=== PATIENT | female | born 1995 | race African-American/Black ===

== ENCOUNTER 2020-02-10 14:42 | Emergency (ER) | payer OTHER, SELFPAY ==
--- NOTE | ~2020-02-10 | XR_ITS ---
EXAMINATION: XR hand LT min 3V DATE: 02/10/2020 15:07 INDICATION: Left hand injury. TECHNIQUE: 3 views of left hand were obtained. COMPARISON: None. FINDINGS: Bone alignment is normal. No fracture. Joint spaces are well maintained. IMPRESSION: 1. Normal left hand. Reviewed, dictated and finalized at location A. OPSYCHOLOGY DIRECTOR IMPRESSION: 1. Normal left hand.
[2020-02-10 14:50] VITALS: BP 141/85; PULSE 95; RESP 16; TEMP 36.9; O2SAT 100
--- NOTE | 2020-02-10 15:36 | ED.GENADULT ---
HPI - General Adult General Chief complaint: Extremity Injury, Upper Stated complaint: lt hand injury Time Seen by Provider: 02/10/20 15:36 Source: patient Mode of arrival: ambulatory Limitations: no limitations History of Present Illness HPI narrative: 24-year-old female patient presents to the [facility] with complaints of left hand pain. Patient states that on Halloween night she was wearing some white contacts and states she was having difficulty seeing and tripped up some stairs using her left hand to brace her fall. Patient states that she hit her left hand on the stairs also scratched up. Patient states she is been taking Tylenol, ibuprofen and icing the hand. Related Data Home Medications Medication Instructions Recorded Confirmed No Home Medications 02/10/20 02/10/20 Allergies Allergy/AdvReac Type Severity Reaction Status Date / Time No Known Allergies Allergy Verified 02/10/20 14:56 Review of Systems Review of Systems: Narrative: CONSTITUTIONAL: Denies fever, chills, or sweats. EYES: Denies visual changes, redness, or discharge. ENT: Denies rhinorrhea, congestion, sore throat, or otalgia. CARDIOVASCULAR: Denies chest pain, palpitations, or edema. RESPIRATORY: Denies cough or dyspnea. GASTROINTESTINAL: Denies abdominal pain, nausea, vomiting, or diarrhea. GENITOURINARY: Denies dysuria or hematuria. SKIN: Denies rash or itching. Positive abrasions left hand MUSCULOSKELETAL: Denies back pain, joint pain, or myalgia. Positive left hand pain NEUROLOGIC: Denies headache, numbness, or weakness. PSYCHIATRIC: Denies anxiety or depression. PMFSH Comments At the time of my signature I agree with nursing past medical history, surgical, social, and family history. There is no relevant family history pertinent to the presenting complaint. Exam Narrative: Exam Narrative: GENERAL: Well-appearing, well-nourished, and in no acute distress. HEAD: Normocephalic, atraumatic. EYES: PERRLA and EOMI. ENT: Nares clear, no rhinorrhea or epistaxis. Mucous membranes moist. NECK: Supple. No lymphadenopathy CHEST: Clear to auscultation. No respiratory distress. HEART: Regular rate and rhythm. No murmur heard. Normal peripheral pulses. ABDOMEN: Soft, nontender, nondistended, normal active bowel sounds. EXTREMITIES: The L hand is without obvious asymmetry or deformity when compared to the R hand. No erythema, atrophy, or obvious deformity. No open wounds, nail avulsion, tissue avulsion, partial or complete amputation, subungual hematoma, bony deformity. Patient does have slight swelling noted over the left second MCP joint along with some ecchymosis noted on the dorsal side of the hand over the index and thumb. On the palm side of the hand there are some abrasions noted in between the second and third digit along with an abrasion noted over the base of the thumb on the palm side. Normal cascade of fingers. Normal flexion and extension of fingers. FDS and FDP intact aganist restistance. No focal fullness, thobbing pain, swelling of fingertip. No tenderness to palpation Pulses and cap refill. SKIN: Warm, dry, no rash. NEURO: No focal deficits. Alert and oriented x3. Course Vital Signs Vital signs: Vital Signs Temperature 36.9 C 02/10/20 14:50 Pulse Rate 95 02/10/20 14:50 Respiratory Rate 16 02/10/20 14:50 Blood Pressure 141/85 H 02/10/20 14:50 Pulse Oximetry 100 02/10/20 14:50 Temperature 36.9 C 02/10/20 14:50 Pulse Rate 95 02/10/20 14:50 Respiratory Rate 16 02/10/20 14:50 Blood Pressure 141/85 H 02/10/20 14:50 Pulse Oximetry 100 02/10/20 14:50 Vital signs reviewed. The patient has been informed that they may have pre-hypertension or Hypertension based on a BP reading in the department. I recommend that the patient call the primary care provider listed on their discharge instructions or a physician of their choice this week to arrange follow up for further evaluation of possible pre-hypertension
== END 2020-02-10 15:46 | disposition home or self-care (01) ==
PROVIDERS: Emergency Provider Nurse Practitioner Family
DX: S63.92XA Sprain of unspecified part of left wrist and hand, initial encounter (principal); W10.9XXA Fall (on) (from) unspecified stairs and steps, initial encounter; S60.512A Abrasion of left hand, initial encounter
CPT/HCPCS: 73130; 99213; G0463